=== PATIENT | male | born 1995 | race African-American/Black ===

== ENCOUNTER 2018-02-01 03:40 | Emergency (ER) | payer MEDICAID ==
[~2018-02-01] VITALS: Ht 180.3 cm; Wt 59.2 kg
[2018-02-01 04:04] VITALS: BP 134/78
== END 2018-02-01 06:29 | disposition left against medical advice (07) ==
LOC: ER 03:40
DX: F41.9 Anxiety disorder, unspecified (principal); Z53.21 Procedure and treatment not carried out due to patient leaving prior to being seen by health care provider

== ENCOUNTER 2019-02-25 14:25 | Emergency (ER) | payer MEDICAID ==
[~2019-02-25] VITALS: Ht 182.9 cm; Wt 64.0 kg
[2019-02-25 17:31] VITALS: BP 118/68
== END 2019-02-25 17:34 | disposition home or self-care (01) ==
LOC: ER 14:25
DX: J03.90 Acute tonsillitis, unspecified (principal)
CPT/HCPCS: 87070; 87430; 99283

== ENCOUNTER 2022-07-24 19:25 | Emergency (ER) | payer MEDICAID ==
[~2022-07-24] VITALS: Ht 180.3 cm; Wt 64.8 kg
[2022-07-24 19:47] VITALS: BP 118/52
== END 2022-07-24 22:14 | disposition left against medical advice (07) ==
LOC: ER 19:25
DX: Z53.21 Procedure and treatment not carried out due to patient leaving prior to being seen by health care provider (principal)
CPT/HCPCS: 99281

== ENCOUNTER 2022-10-14 07:31 | Emergency (ER) | payer MEDICAID ==
[~2022-10-14] VITALS: Ht 180.3 cm; Wt 62.0 kg
[2022-10-14 07:37] VITALS: BP 103/58; TEMP 98.9; O2SAT 100
[2022-10-14 08:22] VITALS: PULSE 82; RESP 18
[2022-10-14] MEDS ORDERED: HYDR50TA55 MT (08:24)
== END 2022-10-14 09:20 | disposition home or self-care (01) ==
LOC: ER 07:31
DX: F41.9 Anxiety disorder, unspecified (principal); F12.10 Cannabis abuse, uncomplicated
CPT/HCPCS: 99283

== ENCOUNTER 2024-07-15 15:21 | Emergency (ER) | payer MEDICAID ==
[~2024-07-15] VITALS: Ht 182.9 cm; Wt 78.0 kg
[~2024-07-15 15:21] MED LIST: HYDR50TA55 MT
[2024-07-15 15:26] VITALS: O2SAT 100
[2024-07-15] MEDS: IBUPROFEN 800MG TABLET PO ONE (16:14)
[2024-07-15] MEDS: LIDOCAINE 5% PATCH TOP STA (16:14)
[2024-07-15] MEDS ORDERED: IBUP-2029 MT (16:14)
[2024-07-15] MEDS ORDERED: LIDO-53 TP (16:14)
[2024-07-15] MEDS ORDERED: CYCL10TA21 MT (16:14)
[2024-07-15 16:20] VITALS: BP 124/71; PULSE 89; RESP 16; TEMP 36.6; O2SAT 100
== END 2024-07-15 16:21 | disposition home or self-care (01) ==
LOC: ER 15:21
DX: M54.2 Cervicalgia (principal); M54.6 Pain in thoracic spine; F12.10 Cannabis abuse, uncomplicated; Z79.899 Other long term (current) drug therapy; V89.2XXA Person injured in unspecified motor-vehicle accident, traffic, initial encounter; Y93.89 Activity, other specified; Y92.410 Unspecified street and highway as the place of occurrence of the external cause; Y99.8 Other external cause status
CPT/HCPCS: 99282; 99283